=== PATIENT | male | born 1970 | race Caucasian/White ===

== ENCOUNTER 2019-12-09 09:34 | Emergency (ER) | payer OTHER ==
[~2019-12-09] VITALS: Ht 170.2 cm; Wt 113.0 kg
[2019-12-09 09:59] VITALS: BP 149/99
== END 2019-12-09 12:13 | disposition home or self-care (01) ==
LOC: ER 09:34
DX: N48.1 Balanitis (principal); B35.6 Tinea cruris; E11.65 Type 2 diabetes mellitus with hyperglycemia
CPT/HCPCS: 82962; 99283